=== PATIENT | male | born 1985 | race Caucasian/White ===

== ENCOUNTER 2017-02-15 17:44 | Emergency (ER) | payer MEDICARE, OTHER ==
[2017-02-15 20:38] LABS: HEMOGLOBIN 15.7 gm/dl (14.0-17.5); RED BLOOD COUNT 5.15 M/UL (4.20-5.50); WHITE BLOOD COUNT 11.2 K/UL (4.5-11.0)
[2017-02-15 20:47] LABS: BUN/CREATININE RATIO 8 (0-10)
== END 2017-02-15 22:30 | disposition home or self-care (01) ==
LOC: ER1 17:44
PROVIDERS: Family Medicine
DX: G40.409 Other generalized epilepsy and epileptic syndromes, not intractable, without status epilepticus (principal); Z88.8 Allergy status to other drugs, medicaments and biological substances; Z79.899 Other long term (current) drug therapy
CPT/HCPCS: 36415; 80053; 80175; 80307; 81001; 85025; 99285

== ENCOUNTER → 2020-09-02 | Outpatient (CLI) | payer MEDICARE, OTHER ==
[~2020-09-02] MED LIST: AMITIZA24 MCG PO; ATIVAN1 MG PO; AZELASTINE137 MCG/0.; BRIVIACT 100 MG PO; CALMOSEPTINE OI71 GM TP; DIASTAT 10 MG PR; FLONASE 0.05% N16 GM; GAS RELIEF180 MG PO; HALDOL 5 MG TAB5 MG PO; INDERAL TAB 4040 MG PO; KEPPRA1000 MG PO; KEPPRA500 MG PO; KLONOPIN0.5 MG PO; LAMICTAL100 MG PO; LIPITOR TAB 2020 MG PO; MIRALAX17 GM PO; NIZORAL 2% CREA15 GM TOP; PREDNISONE20 MG PO; PRILOSEC OTC20 MG PO; REMERON15 M1 PO; SEROQUEL100 MG PO; SEROQUEL50 MG PO; THERAGRAN M TAB1 EA PO; TYLENOL325 M1 PO; VISTARIL25 MG PO; VITAMIN D-40400 UNIT PO; ZYRTEC10 MG PO
== END ==
LOC: KOH-I 14:08
DX: R27.0 Ataxia, unspecified (principal); J90 Pleural effusion, not elsewhere classified; T18.9XXA Foreign body of alimentary tract, part unspecified, initial encounter; S92.252A Displaced fracture of navicular [scaphoid] of left foot, initial encounter for closed fracture; S92.251A Displaced fracture of navicular [scaphoid] of right foot, initial encounter for closed fracture; W19.XXXA Unspecified fall, initial encounter
CPT/HCPCS: 72170; 73562; 73630

== ENCOUNTER → 2020-10-08 | Outpatient (CLI) | payer MEDICARE, OTHER ==
[2020-10-08 11:10] LABS: HEMOGLOBIN 16.3 gm/dl (14.0-17.5); RED BLOOD COUNT 5.1 M/UL (4.20-5.50); WHITE BLOOD COUNT 9.5 K/UL (4.5-11.0)
[2020-10-08 11:29] LABS: BUN/CREATININE RATIO 13 (0-10)
== END ==
LOC: LAB 10:33
PROVIDERS: Nurse Practitioner Primary Care
DX: G40.909 Epilepsy, unspecified, not intractable, without status epilepticus (principal); F63.9 Impulse disorder, unspecified; K29.70 Gastritis, unspecified, without bleeding; F84.9 Pervasive developmental disorder, unspecified; R15.9 Full incontinence of feces; F91.9 Conduct disorder, unspecified; F50.89 Other specified eating disorder; K59.09 Other constipation; R32 Unspecified urinary incontinence; D64.9 Anemia, unspecified; E78.5 Hyperlipidemia, unspecified; S30.850A Superficial foreign body of lower back and pelvis, initial encounter; X58.XXXA Exposure to other specified factors, initial encounter
CPT/HCPCS: 36415; 71046; 74018; 80053; 80061; 84443; 85025

== ENCOUNTER → 2021-02-18 | Outpatient (CLI) | payer MEDICARE, OTHER | LOC: KOH-I 11:11 | DX: K80.20 Calculus of gallbladder without cholecystitis without obstruction (principal); F84.0 Autistic disorder; F50.89 Other specified eating disorder; T18.4XXA Foreign body in colon, initial encounter | CPT/HCPCS: 74022 ==

== ENCOUNTER 2021-03-21 04:35 | Emergency (ER) | payer MEDICARE, OTHER ==
[2021-03-21 05:29] LABS: RED BLOOD COUNT 4.85 M/UL (4.20-5.50); WHITE BLOOD COUNT 7.6 K/UL (4.5-11.0)
[2021-03-21 05:54] LABS: BUN/CREATININE RATIO 10 (0-10)
== END 2021-03-21 07:43 | disposition home or self-care (01) ==
LOC: ER1 04:35
PROVIDERS: Family Medicine
DX: R41.82 Altered mental status, unspecified (principal); F51.12 Insufficient sleep syndrome; Z88.8 Allergy status to other drugs, medicaments and biological substances
CPT/HCPCS: 70450; 71045; 80053; 81001; 82550; 82553; 83605; 83690; 83735; 83874; 84439; 84443; 84484; 85025; 93005; 96374; 99285; J1200

== ENCOUNTER 2021-05-26 16:03 | Emergency (ER) | payer MEDICARE, OTHER | END 2021-05-27 02:00 | disposition home or self-care (01) | LOC: ER1 16:03 | DX: T18.9XXA Foreign body of alimentary tract, part unspecified, initial encounter (principal); F84.0 Autistic disorder; W45.8XXA Other foreign body or object entering through skin, initial encounter | CPT/HCPCS: 74022; 99283 ==